=== PATIENT | female | born 1970 | race Caucasian/White ===

== ENCOUNTER 2017-08-27 16:35 | Emergency (ER) | payer BC ==
[~2017-08-27] VITALS: Ht 162.6 cm; Wt 56.7 kg
[2017-08-27 16:58] VITALS: BP 123/80
[2017-08-27 17:36] LABS: URINE BILIRUBIN NEGATIVE (Negative); URINE BLOOD NEGATIVE (Negative); URINE CLARITY CLEAR; URINE COLOR YELLOW; URINE GLUCOSE-RANDOM* NEGATIVE (Negative); URINE KETONES NEGATIVE (Negative); URINE LEUKOCYTES-REFLEX NEGATIVE (Negative); URINE NITRITE-REFLEX NEGATIVE (Negative); URINE PROTEIN (DIPSTICK) NEGATIVE (Negative); URINE UROBILINOGEN 0.2 E.U./dl (0.2-1.0)
[2017-08-27] MEDS ORDERED: MUCINEX D ER 61 EACH PO (17:45)
[2017-08-27] MEDS ORDERED: ULTRAM 50MG TAB50 MG PO (17:45)
[2017-08-27] MEDS ORDERED: REGLAN 10 MG TA10 MG PO (17:45)
== END 2017-08-27 18:15 | disposition home or self-care (01) ==
LOC: ER 16:35
PROVIDERS: Emergency Medicine
DX: R51 Headache (principal); R11.0 Nausea; R09.81 Nasal congestion; H57.8 Other specified disorders of eye and adnexa; Z87.891 Personal history of nicotine dependence

== ENCOUNTER 2020-03-26 19:14 | Emergency (ER) | payer BC ==
[~2020-03-26] VITALS: Ht 162.6 cm; Wt 59.0 kg
[~2020-03-26 19:14] MED LIST: MUCINEX D ER 61 EACH PO; REGLAN 10 MG TA10 MG PO; ULTRAM 50MG TAB50 MG PO
[2020-03-26] MEDS ORDERED: VALTREX 500 MG500 M1 PO (19:24)
[2020-03-26] MEDS ORDERED: LORAZEPAM 1 MG T1 MG PO (19:25)
[2020-03-26 20:11] LABS: ABSOLUTE NEUTROPHILS 6.6 thou/uL (1.4-8.2); BASOPHILS 0.7 % (0.0-2.0); EOSINOPHILS 2.2 % (0.0-3.0); HEMATOCRIT 39.9 % (37.0-47.0); HEMOGLOBIN 13.1 gm/dL (12.0-15.0); LYMPHOCYTES 28.5 % (24.0-44.0); MCHC 32.9 g/dL (28.0-37.0); MCV 94.2 fL (80.0-100.0); MONOCYTES 8.2 % (1.0-8.0); PLATELET COUNT 360 thou/uL (150-400); POLYS 60.4 % (36.0-66.0); RBC 4.24 mil/uL (4.20-5.00); RDW 12.6 % (10.5-14.5)
[2020-03-26 20:16] LABS: ANION GAP 7 mmol/L (7-16); BUN 13 mg/dL (7-18); CALCIUM 9.7 mg/dL (8.5-10.1); CHLORIDE 103 mmol/L (98-107); CO2 28 mmol/L (21-32); CREATININE 0.7 mg/dL (0.6-1.0); GLUCOSE 94 mg/dL (74-106); POTASSIUM 3.7 mmol/L (3.5-5.1); SODIUM 138 mmol/L (136-145)
[2020-03-26 20:26] LABS: ALBUMIN 4.1 g/dL (3.4-5.0); SGOT 31 U/L (15-37); SGPT 60 U/L (14-59); TOTAL BILIRUBIN 0.3 mg/dL (0.2-1.0); TOTAL PROTEIN 7.4 g/dL (6.4-8.2); TROPONIN-I <0.06 ng/mL (<0.06)
[2020-03-26] MEDS ORDERED: CARAFATE 1 GM TA1 G1 PO (21:26)
[2020-03-26] MEDS ORDERED: OMEPRAZOLE40 MG PO (21:26)
[2020-03-26 22:21] VITALS: BP 122/72
--- NOTE | 2020-03-27 14:34 | EKG ---
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
== END 2020-03-26 22:22 | disposition home or self-care (01) ==
LOC: ER 19:14
PROVIDERS: Physician Assistant
DX: K29.70 Gastritis, unspecified, without bleeding (principal); R07.89 Other chest pain; Z87.891 Personal history of nicotine dependence; Z79.899 Other long term (current) drug therapy; Z90.710 Acquired absence of both cervix and uterus; Z98.890 Other specified postprocedural states